=== PATIENT | female | born 1940 | race Caucasian/White ===

== ENCOUNTER 2022-01-10 20:14 | Emergency (ER) | payer MEDICARE, OTHER ==
[2022-01-10] MEDS ORDERED: Sodium Chloride 0.9% 10 ML Syringe FLUSH PRN (20:43)
[2022-01-10] MEDS ORDERED: Albuterol/Ipratropium 3.0-0.5 MG/3 ML Neb Soln NEB ONE ×2 (20:44→22:12)
[2022-01-10] MEDS ORDERED: methylPREDNISolone Sodium Succinate 125 MG/2 ML SDV IVPUSH PRN (22:57)
[2022-01-10] MEDS ORDERED: Famotidine 20 MG/2 ML SDV IVPUSH PRN (22:57)
[2022-01-10] MEDS ORDERED: EPINEPHrine 1 MG/ML SDV IM PRN (22:57)
[2022-01-10] MEDS ORDERED: diphenhydrAMINE 50 MG/ML SDV IVPUSH PRN (22:57)
[2022-01-10] MEDS ORDERED: Sodium Chloride 0.9% 10 ML Syringe FLUSH SCH (23:00)
[2022-01-11 00:09] VITALS: BP 118/98; PULSE 82
== END 2022-01-10 23:57 | disposition home or self-care (01) ==
LOC: JD.ED 20:14
DX: U07.1 COVID-19 (principal); Z88.5 Allergy status to narcotic agent; Z88.8 Allergy status to other drugs, medicaments and biological substances; Z88.6 Allergy status to analgesic agent; Z79.899 Other long term (current) drug therapy; Z79.82 Long term (current) use of aspirin; Z79.4 Long term (current) use of insulin
CPT/HCPCS: 36415; 71045; 71045-26; 80053; 83880; 84484; 85025; 86140; 93005; 93010; 94640; 99284; 99285-25; J7620-GY; M0222; Q0222

== ENCOUNTER 2022-01-13 20:45 | Emergency (ER) | payer MEDICARE, OTHER ==
[2022-01-13 21:23] VITALS: BP 123/46; PULSE 95
== END 2022-01-14 01:00 | disposition home or self-care (01) ==
LOC: JD.ED 20:45
DX: S51.012A Laceration without foreign body of left elbow, initial encounter (principal); E11.649 Type 2 diabetes mellitus with hypoglycemia without coma; I11.0 Hypertensive heart disease with heart failure; I50.9 Heart failure, unspecified; I25.10 Atherosclerotic heart disease of native coronary artery without angina pectoris; E03.9 Hypothyroidism, unspecified; Z88.5 Allergy status to narcotic agent; Z88.8 Allergy status to other drugs, medicaments and biological substances; Z79.82 Long term (current) use of aspirin; Z79.4 Long term (current) use of insulin; Z79.899 Other long term (current) drug therapy; W01.0XXA Fall on same level from slipping, tripping and stumbling without subsequent striking against object, initial encounter; Y92.009 Unspecified place in unspecified non-institutional (private) residence as the place of occurrence of the external cause
CPT/HCPCS: 73502-26-LT; 73502-LT; 73562-26-LT; 73562-LT; 82947; 99285